=== PATIENT | male | born 1975 | race Caucasian/White ===

== ENCOUNTER 2019-04-25 21:27 | Emergency (ER) | payer SELFPAY ==
--- NOTE | 2019-04-28 15:39 | EKG ---
Test Reason : Blood Pressure : / mmHG Vent. Rate : 087 BPM Atrial Rate : 087 BPM P-R Int : 142 ms QRS Dur : 082 ms QT Int : 372 ms P-R-T Axes : 040 051 037 degrees QTc Int : 447 ms Normal sinus rhythm Normal ECG Confirmed by CECI ALMAGUER M.D. ([id number]), photographic editor GEOVANNI ALMEIDA ([id number]) on 04/28/2019 3:39:06 PM Referred By: Confirmed By:CECI ALMAGUER M.D.
== END 2019-04-25 22:14 | disposition home or self-care (01) ==
LOC: ERS 21:27
DX: R07.9 Chest pain, unspecified (principal); F17.200 Nicotine dependence, unspecified, uncomplicated
CPT/HCPCS: 93005